=== PATIENT | female | born 1985 | race Caucasian/White ===

== ENCOUNTER → 2018-04-25 | Outpatient (CLI) | payer OTHER ==
--- NOTE | 2018-04-25 07:43 | US ---
EXAMINATION TYPE: US abdomen limited DATE OF EXAM: 04/25/2018 COMPARISON: NONE CLINICAL HISTORY: R10.11 Rt upper quadrant pain. Elevated liver enzymes, intermittent RUQ discomfort x 3 years, gets worse after eating certain foods. EXAM MEASUREMENTS: Liver Length: 18.9 cm Gallbladder Wall: 0.2 cm CBD: 0.3 cm Right Kidney: 11.4 x 4.8 x 5.7 cm Difficult and limited study due to patient body habitus Pancreas: visualized portions wnl, tail obscured by overlying midline bowel gas Liver: enlarged, mildly heterogeneous Gallbladder: wnl Evidence for sonographic Rudea's sign: no CBD: visualized portions wnl, limited by overlying bowel gas Right Kidney: wnl IMPRESSION: 1. Hepatomegaly with underlying fatty hepatic infiltration or diffuse hepatocellular disease.
== END | disposition home or self-care (01) ==
LOC: RADUSWWP 06:56
PROVIDERS: ATTEND Family Medicine
DX: R16.0 Hepatomegaly, not elsewhere classified (principal)
CPT/HCPCS: 76705

== ENCOUNTER → 2018-06-02 | Outpatient (CLI) | payer OTHER ==
--- NOTE | 2018-06-02 12:09 | CONS ---
CONSULTATION DATE OF SERVICE: 06/02/2018 A 33-year-old lady who has been evaluated in the [facility] for possible obstructive sleep apnea-hypopnea syndrome. HISTORY OF PRESENT ILLNESS/SLEEP-WAKE EVALUATION: Patient usual sleep schedule on working days from 1 to 2 a.m. until 11:00 and on weekends from about 3 am until 11:30 a.m. She does have problem with falling asleep, although no TV in bedroom. She uses sleeps on the side position with snoring and awakenings from sleep with nocturia. She sometimes tosses and turns during the night. She wakes up tired, feels sleepiness. [place] Sleepiness Scale is 9. PAST MEDICAL HISTORY: Positive for hypertension, polycystic ovarian syndrome. PAST SURGICAL HISTORY: Tooth removed. MEDICATIONS: Hydrochlorothiazide, lisinopril. SOCIAL HISTORY: Positive for smoking for about 6 years about half pack a day, quit about 1 year ago. Alcohol consumption rarely. FAMILY HISTORY: Hypertension, fibromyalgia, sinus problems, sleep apnea, snoring, acid reflux, liver problems, diabetes. REVIEW OF SYSTEMS: Some awakening from sleep, feeling tiredness during the day. Irregular menstrual periods. PHYSICAL EXAM: lady without distress, BP 134/77, HR 92, RR 16, height 5 foot 7 inches, weight 207 pounds, neck 17-1/4 inches. Body mass index 47.9, temperature 98.1, oxygen saturation at room air 98%. OROPHARYNX: Extremely low position of soft palate. Mallampati IV, restriction of nasal breathing bilaterally. ABDOMEN: Obese. Neck Supple, no JVD. Thyroid is not palpable. LUNGS Clear to percussion and to auscultation. Good air exchange. No wheezing or rhonchi. HEART S1, S2 regular. No murmurs, gallops, or rubs. EXTREMITIES No clubbing or cyanosis. ACID BLOWER Awake, alert, and oriented X3. Cranial nerves 2 to 7 intact. There is no fasciculation or atrophy. noted. No focal deficits observed. IMPRESSION: 1. Snoring, awakenings from sleep with nocturia, feeling tiredness and sleepiness during the day. Extremely low position of soft palate, wide neck 17-1/4 inches in circumference. Obstructive sleep apnea-hypopnea syndrome. 2. Obesity, body mass index 47.9. 3. Hypertension. 4. Polycystic ovary syndrome. PLAN: 1. Polysomnography for evaluation of patient's breathing during sleep. 2. CPAP/BiPAP titration if sleep study confirms obstructive sleep apnea-hypopnea syndrome. 3. Preferable position during sleep on the side. 4. No driving if patient feels any sleepiness. 5. I will see patient for follow up visit to explain results of testing and following plan. Thank you very much for referring this patient for consultation. Sincerely, Paramjit Krueger MD, PhD, FAASM Diplomat of [employer] [facility] [place] MMODL / IJN: [id number] /
== END ==
LOC: SLEEP 10:20
PROVIDERS: ATTEND Internal Medicine
DX: G47.33 Obstructive sleep apnea (adult) (pediatric) (principal); E66.9 Obesity, unspecified; I10 Essential (primary) hypertension; E28.2 Polycystic ovarian syndrome; Z68.42 Body mass index [BMI] 45.0-49.9, adult; Z99.89 Dependence on other enabling machines and devices; Z79.899 Other long term (current) drug therapy; Z87.891 Personal history of nicotine dependence
CPT/HCPCS: 99211